=== PATIENT | female | born 1960 | race Caucasian/White ===

== ENCOUNTER → 2017-03-01 | Outpatient (CLI) | payer OTHER ==
[~2017-03-01] MED LIST: ALBUAER3 INH; ALPR0.25 PO; ASPI325T PO; CALC950T PO; CITA20TA4 PO; DIALCAP PO; DOCU100C PO; FURO1TAB62 PO; GABA300C5 PO; GLUCTES27; IBUP400T20 PO; INSU-174; LEVEMIR SQ; LEVO100T5 PO; MAGN1CAP2 PO; METF500T PO; MONT10TA4 PO; MULT-65; MULT1TAB21; NITR0.4S SL; OMEP40CA2 PO; POTA10CA PO; ROBA500T PO; ROSU10 PO; SYNT88TA PO; WELLTAB39 PO; XARE20TA PO; ZANA4CAP PO; [UNRECOGNIZED DRUG - CODE]; [UNRECOGNIZED DRUG - CODE] SL
[2017-03-01 10:29] LABS: HEMATOCRIT 36.5 % (35.0-46.0); MEAN CELL VOLUME 90.4 FL (80.0-100.0); MEAN CORPUSCULAR HEMOGLOBIN 29.8 PG (27.0-34.0); PLATELET COUNT 214 TH/MM3 (150-450); RED BLOOD COUNT 4.04 MIL/MM3 (4.00-5.30); RED CELL DISTRIBUTION WIDTH 12.8 % (11.6-17.2); REVIEW FLAG FINAL; WHITE BLOOD COUNT 6.8 TH/MM3 (4.0-11.0)
[2017-03-01 11:03] LABS: ALKALINE PHOSPHATASE 112 U/L (45-117); ALT (GPT) 31 U/L (10-53); ANION GAP 7 MEQ/L (5-15); AST (GOT) 16 U/L (15-37); BLOOD UREA NITROGEN 11 MG/DL (7-18); CHLORIDE 100 MEQ/L (98-107); GLOMERULAR FILTRATION RATE 69 ML/MIN (>89); GLUCOSE,FASTING 250 MG/DL (74-99); HDL CHOLESTEROL 46.6 MG/DL (40.0-60.0); LDL CHOLESTEROL 70 MG/DL (0-99); POTASSIUM 3.9 MEQ/L (3.5-5.1); SODIUM (NA) 138 MEQ/L (136-145); TOTAL BILIRUBIN ADULT 0.3 MG/DL (0.2-1.0)
[2017-03-01 14:35] LABS: HEMOGLOBIN A1a 1.2 %; HEMOGLOBIN A1b 2.5 %; HEMOGLOBIN Ao 78.5 %; HEMOGLOBIN LA1C 3.1 %; HEMOGLOBIN P3 4.8 %
== END ==
LOC: CLAB 09:28
PROVIDERS: ATTEND Nurse Practitioner Family
DX: E11.9 Type 2 diabetes mellitus without complications (principal)
CPT/HCPCS: 36415; 80053; 80061; 83036; 84443; 85027

== ENCOUNTER 2017-06-24 05:35 | Observation (INO) | payer OTHER ==
[~2017-06-24 05:35] MED LIST changes: -CALC950T PO; -INSU-174; -SYNT88TA PO
[2017-06-24 05:37] VITALS: BP 150/72; PULSE 80; RESP 16; TEMP 98.1; O2SAT 96
--- NOTE | 2017-06-24 06:35 | PD ---
HPI Chief Complaint: Nosebleed Time Seen by Provider: 05:53 Travel History International Travel<30 days: No Contact w/Intl Traveler<30days: No Traveled to known affect area: No History of Present Illness HPI Patient is a 57-year-old female presents emergency department for evaluation of back pain. She states the pain is just between her shoulder blades and it feels just like the last time she had a heart attack. The patient became alarmed when she awoke this morning and there was some wetness on her face and when she woke up there was some blood on her face from her right [place]. Patient states she is on Xarelto for stents in her heart. She states she does have a history of age fibrillation status post ablation. She states she had a catheterization in 2008 at [facility] at her insistence because she thought she was having a heart attack in the fine 99% blockage which they stated that time. She states she has not seen a alignment technician since. She denies any shortness of breath abdominal pain nausea or vomiting. States symptoms started last night after dinner. PFSH Past Medical History Hx Anticoagulant Therapy: Yes Arthritis: Yes (OA) Atrial Fibrillation: Yes (ABLATION) Heart Rhythm Problems: Yes Cancer: No Cardiac Catheterization: Yes Cardiovascular Problems: Yes High Cholesterol: Yes Congestive Heart Failure: No Coronary Artery Disease: Yes Diabetes: Yes Patient Takes Glucophage: Yes Diminished Hearing: No Endocrine: Yes (HYPOTHYROIDISM) Genitourinary: No Musculoskeletal: Yes (OSTEOPOROSIS, BACK STENOSIS) Neurologic: No Psychiatric: No Reproductive: No Respiratory: No Thyroid Disease: Yes (HYPO) Past Surgical History Abdominal Surgery: Yes (HYSTERECTOMY) Cardiac Surgery: Yes (CARDIAC CATH, ABLATION) Coronary Artery Bypass Graft: No Coronary Stent: Yes Gynecologic Surgery: Yes (C SECTION X2) Hysterectomy: Yes Pacemaker: No Family History Family Myocardial Infarction: Yes Social History Alcohol Use: Yes (wine occ) Tobacco Use: No (hx) Substance Use: No Allergies-Medications (Allergen,Severity, Reaction): Coded Allergies: Coconut (Verified Allergy, Severe, Anaphylaxis, 06/24/17) Codeine (Verified Allergy, Intermediate, Nausea/Vomiting, 06/24/17) Nonsteroidal Anti-Inflammatory Agts (Verified Adverse Reaction, Severe, BLEEDING, 06/24/17) Reported Meds & Prescriptions Reported Meds & Active Scripts Active Bd Insulin Syringe Safety 29G X 1/2" 1 ml (Insulin Syringe/Needle U-100) 1 Mis Mis Box BID Levemir Inj (Insulin Detemir) 1,000 unit/ 10 ML Vial 15 Units SQ BID Do not mix with any other Insulin. Merary Contour Next Blood Test Strips (Blood Glucose Test Strips) 1 Merlene Merlene 1 Strip .ROUTE BID Lasix (Furosemide) 20 Mg Tab 20 Mg PO DAILY Nitrostat SL (Nitroglycerin) 0.4 Mg Subl 0.4 Mg SL DIRECTED PRN 1 tablet under the tongue as needed for chest pain. Repeat every 5 minutes for a total of 3 DOSES or call 911 if NO relief. Metformin (Metformin HCl) 500 Mg Tab 500 Mg PO BIDPC PRN With meals. taking 1 tab in the am and 1,000 at night Xarelto (Rivaroxaban) 20 Mg Tab 20 Mg PO DAILY Crestor (Rosuvastatin Calcium) 10 Mg Tab 10 Mg PO HS Zanaflex (Tizanidine HCl) 4 Mg Cap 4 Mg PO HS Robaxin (Methocarbamol) 500 Mg Tab 500 Mg PO TID Montelukast (Montelukast Sodium) 10 Mg Tab 10 Mg PO HS Potassium Chloride ER (Potassium Chloride) 10 Meq Cap 10 Meq PO BID Ibuprofen 400 Mg Tab 400 Mg PO BID Omeprazole 40 Mg Cap 40 Mg PO BIDAC Proair Hfa 8.5 GM Inh (Albuterol Sulfate) 90 Mcg/Act Aer 2 Puff INH QID PRN 108 mcg/actuation Reported Vitamin D3 (Cholecalciferol) 5,000 Unit Cap 5,000 Units PO DAILY Levothyroxine (Levothyroxine Sodium) 88 Mcg Tab 88 Mcg PO DAILY Hair/Skin/Nails/Biotin (Multiple Vitamins W/ Minerals) 1 Tab Tab 2 Chew DAILY Multi-Vitamin Daily (Multiple Vitamin) 1 Tab Tab 1 Chew .ROUTE B-12 Dots (Cyanocobalamin) 500 Mcg Tab 1,000 Mcg SL DAILY Alprazolam 0.25 Mg Tab 0.25 Mg PO DAILY PRN Aspirin 325 Mg Tab 325 Mg PO DAILY Docusate Sodium 100 Mg Cap 100 Mg PO DAILY Citalopram (Citalopram Hydrobromide) 20 Mg Tab 20 Mg PO DAILY Wellbutrin Xl 24 HR (Bupropion HCl) 300 Mg Tab 300 Mg PO DAILY Gabapentin 300 Mg Cap 300 Mg PO HS Dialyvite Vitamin D 5000 (Cholecalciferol) 5,000 Unit Cap 5,000 Units PO DAILY Review of Systems Except as stated in HPI: all other systems reviewed are Neg Physical Exam Narrative GENERAL: Well-developed well-nourished no obvious distress. SKIN: Focused skin assessment warm/dry. HEAD: Atraumatic. Normocephalic. EYES: Pupils equal and round. No scleral icterus. No injection or drainage. ENT: No nasal bleeding or discharge. Mucous membranes pink and moist. NECK: Trachea midline. No JVD. CARDIOVASCULAR: Regular rate and rhythm. No murmur appreciated. 2+ bilateral equal pulses in all 4 extremities. No edema. No murmurs gallops or rubs. RESPIRATORY: No accessory muscle use. Clear to auscultation. Breath sounds equal bilaterally. GASTROINTESTINAL: Abdomen soft, non-tender, nondistended. Hepatic and splenic margins not palpable. MUSCULOSKELETAL: No obvious deformities. No clubbing. No cyanosis. No edema. There is some minimal tenderness between the shoulder blades not in the midline. NEUROLOGICAL: Awake and alert. No obvious cranial nerve deficits. Motor grossly within normal limits. Normal speech. PSYCHIATRIC: Appropriate mood and affect; insight and judgment normal. Data Data Last Documented VS Vital Signs Date Time Temp Pulse Resp B/P Pulse Ox O2 Delivery O2 Flow Rate FiO2 06/24/17 05:37 98.1 80 16 150/72 96 Room Air Orders Electrocardiogram (06/24/17 06:31) Ckmb (Isoenzyme) Profile (06/24/17 06:31) Complete Blood Count With Diff (06/24/17 06:31) Comprehensive Metabolic Panel (06/24/17 06:31) Magnesium (Mg) (06/24/17 06:31) Prothrombin Time / Inr (Pt) (06/24/17 06:31) Act Partial Throm Time (Ptt) (06/24/17 06:31) Troponin I (06/24/17 06:31) Chest, Single Ap (06/24/17 06:31) Ecg Monitoring (06/24/17 06:31) Iv Access Insert/Monitor (06/24/17 06:31) Oximetry (06/24/17 06:31) Oxygen Administration (06/24/17 06:31) Aspirin Chew (Aspirin Chew) (06/24/17 06:45) Sodium Chloride 0.9% Flush (Ns Flush) (06/24/17 06:45) Labs Laboratory Tests Test 06/24/17 06:41 White Blood Count 7.3 TH/MM3 Red Blood Count 3.89 MIL/MM3 Hemoglobin 11.6 GM/DL Hematocrit 35.1 % Mean Corpuscular Volume 90.3 FL Mean Corpuscular Hemoglobin 29.9 PG Mean Corpuscular Hemoglobin 33.1 % Concent Red Cell Distribution Width 13.1 % Platelet Count 244 TH/MM3 Mean Platelet Volume 7.4 FL Neutrophils (%) (Auto) 46.0 % Lymphocytes (%) (Auto) 45.7 % Monocytes (%) (Auto) 6.2 % Eosinophils (%) (Auto) 1.8 % Basophils (%) (Auto) 0.3 % Neutrophils # (Auto) 3.4 TH/MM3 Lymphocytes # (Auto) 3.3 TH/MM3 Monocytes # (Auto) 0.5 TH/MM3 Eosinophils # (Auto) 0.1 TH/MM3 Basophils # (Auto) 0.0 TH/MM3 CBC Comment DIFF FINAL Differential Comment MDM Medical Decision Making Medical Screen Exam Complete: Yes Emergency Medical Condition: Yes Interpretation(s) EKG shows normal sinus rhythm normal axis normal R-wave progression. No concerning ST segment changes. Intervals within normal limits. This normal EKG. Differential Diagnosis ACS, AMI, shoulder pain, muscular skeletal pain. Narrative Course Patient roomed in emergency department, basic cardiac labs have been ordered for her. EKG reviewed and is nonischemic. Patient will be discussed with the oncoming provider Dr. Mcmahon at 07 100 shift change to follow-up labs and disposition the patient appropriately. Win Zarate MD Jun 24, 2017 06:35
[2017-06-24] MEDS ORDERED: LEVO88TA2 PO (06:40)
[2017-06-24] MEDS ORDERED: CHOL5000 PO (06:40)
[2017-06-24] MEDS ORDERED: ASPIRIN 81 MG CHEW TAB PO ONE (06:45)
[2017-06-24] MEDS ORDERED: SODIUM CHLORIDE 0.9% FLUSH 10 ML FLUSH IVF PRN (06:45)
--- NOTE | 2017-06-24 06:46 | RADRPT ---
EXAM DATE/TIME: 06/24/2017 06:26 [facility] COMPARISON: CHEST SINGLE AP, December 26, 2015, 18:48. INDICATIONS : Chest pain. MEDICAL HISTORY : Diabetes mellitus type II. SURGICAL HISTORY : Kyphoplasty. ENCOUNTER: Initial ACUITY: 1 day PAIN SCORE: 6/10 LOCATION: Bilateral chest FINDINGS: A single view of the chest demonstrates the lungs to be symmetrically aerated without evidence of mas s, infiltrate or effusion. The cardiomediastinal contours are unremarkable. Osseous structures are intact. CONCLUSION: The lungs are clear. Hugh Vela MD on June 24, 2017 at 6:45 Board Certified Radiologist. This report was verified electronically.
[2017-06-24 06:55] LABS: AUTOMATED NEUTROPHIL # 3.4 TH/MM3 (1.8-7.7); BASOPHIL % 0.3 % (0.0-2.0); EOSINOPHIL # 0.1 TH/MM3 (0-0.4); EOSINOPHIL % 1.8 % (0.0-4.0); HEMATOCRIT 35.1 % (35.0-46.0); HEMO FLAGS DIFF FINAL; LYMPH % 45.7 % (9.0-44.0); LYMPHOCYTE # 3.3 TH/MM3 (1.0-4.8); MEAN CELL VOLUME 90.3 FL (80.0-100.0); MEAN CORPUSCULAR HEMOGLOBIN 29.9 PG (27.0-34.0); MEAN CORPUSCULAR HGB CONC 33.1 % (32.0-36.0); MONO % 6.2 % (0.0-8.0); PLATELET COUNT 244 TH/MM3 (150-450); RED BLOOD COUNT 3.89 MIL/MM3 (4.00-5.30); RED CELL DISTRIBUTION WIDTH 13.1 % (11.6-17.2); WHITE BLOOD COUNT 7.3 TH/MM3 (4.0-11.0)
[2017-06-24 06:59] VITALS: BP 137/70; PULSE 69; RESP 17; O2SAT 98
[2017-06-24 07:06] LABS: APTT (PATIENT) 28.9 SEC (24.3-30.1); INTERNATIONAL NORMALIZED RATIO 1.2 RATIO; PROTHROMBIN TIME - PATIENT 12.8 SEC (9.8-11.6)
[2017-06-24] MEDS ORDERED: ACETAMINOPHEN 325 MG TAB PO ONE (07:15)
[2017-06-24 07:24] LABS: ALT (GPT) 24 U/L (10-53); ANION GAP 11 MEQ/L (5-15); BICARBONATE 25.2 MEQ/L (21.0-32.0); BLOOD UREA NITROGEN 11 MG/DL (7-18); CHLORIDE 104 MEQ/L (98-107); GLOMERULAR FILTRATION RATE 82 ML/MIN (>89); MAGNESIUM 1.8 MG/DL (1.5-2.5); POTASSIUM 3.6 MEQ/L (3.5-5.1); SODIUM (NA) 140 MEQ/L (136-145)
[2017-06-24 07:29] LABS: ALKALINE PHOSPHATASE 100 U/L (45-117); AST (GOT) 19 U/L (15-37); TOTAL BILIRUBIN ADULT 0.2 MG/DL (0.2-1.0)
[2017-06-24 07:31] LABS: CREATINE KINASE 88 U/L (26-192)
--- NOTE | 2017-06-24 07:36 | PD ---
Physical Exam Date Seen by Provider: Jun 24, 2017 Time Seen by Provider: 07:34 Narrative 57-year-old female came to the emergency room with history of back pain saying that it feels exactly like her heart attack last time. Patient does have history of coronary artery disease and has a stent that was put in 2007. She was seen by the previous ER physician. Please refer to his notes regarding details specifics regarding her history and physical. The sign out to me was to follow-up on the blood test result and as per the previous physician patient had enough past history and concerns regarding coronary artery disease and hence should be admitted to the chest pain center to be ruled out. Blood test results are currently back and troponin is within acceptable limits. As per the previous physician's decision patient will be admitted for observation to the chest pain center to be evaluated by the computer forensics examiner. Patient was complaining of headache from the nitroglycerin. I've ordered some Tylenol for her. Data Data Last Documented VS Vital Signs Date Time Temp Pulse Resp B/P Pulse Ox O2 Delivery O2 Flow Rate FiO2 06/24/17 06:59 69 17 137/70 98 Room Air 06/24/17 05:37 98.1 Orders Electrocardiogram (06/24/17 06:31) Ckmb (Isoenzyme) Profile (06/24/17 06:31) Complete Blood Count With Diff (06/24/17 06:31) Comprehensive Metabolic Panel (06/24/17 06:31) Magnesium (Mg) (06/24/17 06:31) Prothrombin Time / Inr (Pt) (06/24/17 06:31) Act Partial Throm Time (Ptt) (06/24/17 06:31) Troponin I (06/24/17 06:31) Chest, Single Ap (06/24/17 06:31) Ecg Monitoring (06/24/17 06:31) Iv Access Insert/Monitor (06/24/17 06:31) Oximetry (06/24/17 06:31) Oxygen Administration (06/24/17 06:31) Aspirin Chew (Aspirin Chew) (06/24/17 06:45) Sodium Chloride 0.9% Flush (Ns Flush) (06/24/17 06:45) Acetaminophen (Tylenol) (06/24/17 07:15) Admit Order (Ed Use Only) (06/24/17 07:40) Labs Laboratory Tests Test 06/24/17 06/24/17 06:40 06:41 D-Dimer Quantitative (PE/DVT) 0.35 MG/L FEU White Blood Count 7.3 TH/MM3 Red Blood Count 3.89 MIL/MM3 Hemoglobin 11.6 GM/DL Hematocrit 35.1 % Mean Corpuscular Volume 90.3 FL Mean Corpuscular Hemoglobin 29.9 PG Mean Corpuscular Hemoglobin 33.1 % Concent Red Cell Distribution Width 13.1 % Platelet Count 244 TH/MM3 Mean Platelet Volume 7.4 FL Neutrophils (%) (Auto) 46.0 % Lymphocytes (%) (Auto) 45.7 % Monocytes (%) (Auto) 6.2 % Eosinophils (%) (Auto) 1.8 % Basophils (%) (Auto) 0.3 % Neutrophils # (Auto) 3.4 TH/MM3 Lymphocytes # (Auto) 3.3 TH/MM3 Monocytes # (Auto) 0.5 TH/MM3 Eosinophils # (Auto) 0.1 TH/MM3 Basophils # (Auto) 0.0 TH/MM3 CBC Comment DIFF FINAL Differential Comment Prothrombin Time 12.8 SEC Prothromb Time International 1.2 RATIO Ratio Activated Partial 28.9 SEC Thromboplast Time Sodium Level 140 MEQ/L Potassium Level 3.6 MEQ/L Chloride Level 104 MEQ/L Carbon Dioxide Level 25.2 MEQ/L Anion Gap 11 MEQ/L Blood Urea Nitrogen 11 MG/DL Creatinine 0.73 MG/DL Estimat Glomerular Filtration 82 ML/MIN Rate Random Glucose 122 MG/DL Calcium Level 8.4 MG/DL Magnesium Level 1.8 MG/DL Total Bilirubin 0.2 MG/DL Aspartate Amino Transf 19 U/L (AST/SGOT) Alanine Aminotransferase 24 U/L (ALT/SGPT) Alkaline Phosphatase 100 U/L Total Creatine Kinase 88 U/L Troponin I LESS THAN 0.02 NG/ML Total Protein 7.1 GM/DL Albumin 3.4 GM/DL [facility] Supervised Visit with [facility]: No Diagnosis Primary Impression: Chest pain Qualified Code: R07.9 - Chest pain, unspecified type Additional Impression: Back pain Qualified Code: M54.6 - Acute midline thoracic back pain Admitting Information Admitting Physician Requests: Observation Scripts Cyclobenzaprine (Flexeril)5 Mg Tab5 Mg PO TID #30 TAB Ref 0 Prov:Juliet Robbins 06/24/17 Brannon Mcmahon MD Jun 24, 2017 07:36
[2017-06-24] MEDS ORDERED: NITROGLYCERIN 0.4 MG SL 25 TABS/BTL SL PRN (08:30)
[2017-06-24] MEDS ORDERED: ONDANSETRON HCL 4 MG/2 ML VIAL IV PRN (08:30)
[2017-06-24 09:00] VITALS: BP 134/62; PULSE 65; RESP 18; TEMP 98.7; O2SAT 97; O2SAT 98
[2017-06-24] MEDS ORDERED: SODIUM CHLORIDE 0.9% FLUSH 10 ML FLUSH IV FLUSH SCH (09:00)
[2017-06-24 09:35] VITALS: PULSE 65
--- NOTE | 2017-06-24 09:39 | HHI.HP ---
HPI Primary Care Physician Kym Javier MD Chief Complaint Back pain History of Present Illness 57-year-old female with history of CAD, diabetes, hypertension, and hyperlipidemia presents to emergency room for further evaluation of back pain. Onset yesterday afternoon at 2 PM. Location mid back just below her shoulder blades. Radiation to substernal chest. Characterized has aching, sharp pain. No associated symptoms of nausea, vomiting, diaphoresis. Endorses shallow breathing due to severe pain, states it hurts to take a deep breath. No particular position or movement makes pain better or worse. No known precipitating or relieving factors. Reports similar pain in the past in 2011 at which one cardiac stent was placed. Review of Systems General: No fatigue,weakness, fever, chills, or recent illness. Has been in her general state of health. HEENT: No MARIN, no vision changes. Reports nosebleed this a.m. for approximately 45 minutes. CV: As stated above. No palpitations. History paroxysmal A. fib. RESP: No SOB, cough, wheeze, or recent URI. GI: No nausea, vomiting, bowel changes, diarrhea, constipation, pain, distention , melena, or blood in the stool. Denies incontinence of bowel. No change in appetite, no unintentional weight gain or weight loss. : No dysuria, urgency, frequency, frequent UTIs, or history of kidney stones. Denies urinary incontinence. EXT: No lower leg edema, no paraesthesias, no saddle anesthesia MS: As stated above. Continues to have discomfort and back rated 9/10. No change in ROM or progressive extremity weakness. NEURO: No difficulty with balance, LOC, motor/sensory deficits PSYCH: No anxiety or depression SKIN: No rashes, no concerning lesions Past Family Social History Allergies: Coded Allergies: Coconut (Verified Allergy, Severe, Anaphylaxis, 06/24/17) Codeine (Verified Allergy, Intermediate, Nausea/Vomiting, 06/24/17) Nonsteroidal Anti-Inflammatory Agts (Verified Adverse Reaction, Severe, BLEEDING, 06/24/17) Past Medical History CAD, times one cardiac stent, diabetes, hypertension, hyperlipidemia, paroxysmal afib with ablation 2013, osteoarthritis Past Surgical History Hysterectomy, 2, bilateral rotator cuff repair, cholecystectomy Reported Medications Active Bd Insulin Syringe Safety 29G X 1/2" 1 ml (Insulin Syringe/Needle U-100) 1 Mis Mis Box BID Levemir Inj (Insulin Detemir) 1,000 unit/ 10 ML Vial 15 Units SQ BID Do not mix with any other Insulin. Merary Contour Next Blood Test Strips (Blood Glucose Test Strips) 1 Merlene Merlene 1 Strip .ROUTE BID Lasix (Furosemide) 20 Mg Tab 20 Mg PO DAILY Nitrostat SL (Nitroglycerin) 0.4 Mg Subl 0.4 Mg SL DIRECTED PRN 1 tablet under the tongue as needed for chest pain. Repeat every 5 minutes for a total of 3 DOSES or call 911 if NO relief. Metformin (Metformin HCl) 500 Mg Tab 500 Mg PO BIDPC PRN With meals. taking 1 tab in the am and 1,000 at night Xarelto (Rivaroxaban) 20 Mg Tab 20 Mg PO DAILY Crestor (Rosuvastatin Calcium) 10 Mg Tab 10 Mg PO HS Zanaflex (Tizanidine HCl) 4 Mg Cap 4 Mg PO HS Robaxin (Methocarbamol) 500 Mg Tab 500 Mg PO TID Montelukast (Montelukast Sodium) 10 Mg Tab 10 Mg PO HS Potassium Chloride ER (Potassium Chloride) 10 Meq Cap 10 Meq PO BID Ibuprofen 400 Mg Tab 400 Mg PO BID Omeprazole 40 Mg Cap 40 Mg PO BIDAC Proair Hfa 8.5 GM Inh (Albuterol Sulfate) 90 Mcg/Act Aer 2 Puff INH QID PRN 108 mcg/actuation Reported Vitamin D3 (Cholecalciferol) 5,000 Unit Cap 5,000 Units PO DAILY Levothyroxine (Levothyroxine Sodium) 88 Mcg Tab 88 Mcg PO DAILY Hair/Skin/Nails/Biotin (Multiple Vitamins W/ Minerals) 1 Tab Tab 2 Chew DAILY Multi-Vitamin Daily (Multiple Vitamin) 1 Tab Tab 1 Chew .ROUTE B-12 Dots (Cyanocobalamin) 500 Mcg Tab 1,000 Mcg SL DAILY Alprazolam 0.25 Mg Tab 0.25 Mg PO DAILY PRN Aspirin 325 Mg Tab 325 Mg PO DAILY Docusate Sodium 100 Mg Cap 100 Mg PO DAILY Citalopram (Citalopram Hydrobromide) 20 Mg Tab 20 Mg PO DAILY Wellbutrin Xl 24 HR (Bupropion HCl) 300 Mg Tab 300 Mg PO DAILY Gabapentin 300 Mg Cap 300 Mg PO HS Dialyvite Vitamin D 5000 (Cholecalciferol) 5,000 Unit Cap 5,000 Units PO DAILY Active Ordered Medications Current Medications Medications (Trade) Dose Ordered Sig/Kade Route Start Time Stop Time Status Last Admin (NS Flush) 2 ml UNSCH PRN IVF 06/24/17 06:45 06/24/17 06:48 (NS Flush) 2 ml BID IV FLUSH 06/24/17 09:00 (Tylenol) 500 mg Q4H PRN PO 06/24/17 11:00 (Zofran Inj) 4 mg Q6H PRN IV 06/24/17 08:30 (Nitrostat Sl) 0.4 mg Q5M PRN SL 06/24/17 08:30 Family History Mother heart attack at age 46. Dad age 68 from colon cancer. Social History Known diabetes, hypertension, personal coronary artery disease, and hyperlipidemia. Quit smoking 11 years ago. Endorses one glass a wine weekly. Denies any illegal drug use. Past cardiac testing 2011-cardiac catheterization ([facility]-Dr. Gideon Cole)-one cardiac stent placed. She cannot remember which artery and does not have a cardiac card with her. Physical Exam Vital Signs Vital Signs Date Time Temp Pulse Resp B/P Pulse Ox O2 Delivery O2 Flow Rate FiO2 06/24/17 09:00 98.7 65 18 134/62 97 06/24/17 06:59 69 17 137/70 98 Room Air 06/24/17 05:37 98.1 80 16 150/72 96 Room Air Physical Exam GENERAL: Alert WN, WD, NAD, female who appears older than stated age HEAD: NC, AT CV: RRR, without murmur, rub, gallop, no JVD, S1-S2 no S3-S4. Substernal chest pain tender with palpation RESP: Clear lungs throughout bilateral, no crackles, wheeze, rhonchi, symmetrical chest rise, nonlabored, able to speak in full sentences ABD: Soft, NT, ND, no masses, positive bowel tones BACK: No CVAT, no scoliosis, tenderness to midline, right of spine laterally with palpation. EXT: Pulses +24, no dependent edema MS: Normal tone 4 extremities, nontender, no obvious deformities, full range of motion NEURO: CN II through CN XII grossly intact, motor strength 5/5, PSYCH: A+O 3, pleasant affect, appropriate speech, appropriate mood and affect , insight and judgment SKIN: Normal turgor, normal texture, no rashes Laboratory Laboratory Tests Test 06/24/17 06:41 White Blood Count 7.3 Red Blood Count 3.89 Hemoglobin 11.6 Hematocrit 35.1 Mean Corpuscular Volume 90.3 Mean Corpuscular Hemoglobin 29.9 Mean Corpuscular Hemoglobin 33.1 Concent Red Cell Distribution Width 13.1 Platelet Count 244 Mean Platelet Volume 7.4 Neutrophils (%) (Auto) 46.0 Lymphocytes (%) (Auto) 45.7 Monocytes (%) (Auto) 6.2 Eosinophils (%) (Auto) 1.8 Basophils (%) (Auto) 0.3 Neutrophils # (Auto) 3.4 Lymphocytes # (Auto) 3.3 Monocytes # (Auto) 0.5 Eosinophils # (Auto) 0.1 Basophils # (Auto) 0.0 CBC Comment DIFF FINAL Differential Comment Prothrombin Time 12.8 Prothromb Time International 1.2 Ratio Activated Partial 28.9 Thromboplast Time Sodium Level 140 Potassium Level 3.6 Chloride Level 104 Carbon Dioxide Level 25.2 Anion Gap 11 Blood Urea Nitrogen 11 Creatinine 0.73 Estimat Glomerular Filtration 82 Rate Random Glucose 122 Calcium Level 8.4 Magnesium Level 1.8 Total Bilirubin 0.2 Aspartate Amino Transf 19 (AST/SGOT) Alanine Aminotransferase 24 (ALT/SGPT) Alkaline Phosphatase 100 Total Creatine Kinase 88 Troponin I LESS THAN 0.02 Total Protein 7.1 Albumin 3.4 Result Diagram: 06/24/1741 06/24/1741 Imaging Last Impressions Chest X-Ray 06/24/17 0631 Signed Impressions: Service Date/Time: Saturday, June 24, 2017 06:26 - CONCLUSION: The lungs are clear. Hugh Vela MD Course EKG Assessment and Plan Assessment and Plan Atypical chest painadmitted to chest pain center. Will rule out with serial EKGs and cardiac enzymes. Monitor on telemetry. Seen and evaluated by Dr. Gideon Cole. Back and chest pain easily reproducible with palpation, movement, and is worse with breathing. No further cardiac testing required. Reassurance provided to patient discomfort not cardiac in nature. Thoracic radiculopathyDilaudid 2 milligrams every 4 hours when necessary, spinal lumber x-ray Diabetes-SSI moderate dose coverage Hyperlipidemia-continue Crestor Depression-continue citalopram, Wellbutrin Hypothyroidism-continue levothyroxine All other routine medications will be reordered accordingly Juliet Robbins Jun 24, 2017 09:39
[2017-06-24 10:46] LABS: CREATINE KINASE 119 U/L (26-192)
[2017-06-24] MEDS: HYDROmorphone HCL 2 MG TAB PO PRN ×2 (10:47→14:34)
[2017-06-24 10:58] LABS: CKMB 1.5 NG/ML (0.5-3.6)
[2017-06-24] MEDS ORDERED: ACETAMINOPHEN 500 MG CPLT PO PRN (11:00)
[2017-06-24 13:20] VITALS: BP 121/81; PULSE 104; RESP 16; TEMP 98.2; O2SAT 96
[2017-06-24 13:53] LABS: CREATINE KINASE 84 U/L (26-192)
[2017-06-24] MEDS ORDERED: FUROSEMIDE 20 MG TAB PO SCH (14:00)
[2017-06-24] MEDS ORDERED: INSULIN DETEMIR 100 UNITS/ML VIAL SQ SCH (14:00)
[2017-06-24] MEDS ORDERED: buPROPion HCL 150 MG SUSTAINED RELEASE TAB PO SCH (14:00)
[2017-06-24] MEDS ORDERED: POTASSIUM CHLORIDE 10 MEQ CAP PO SCH (14:00)
[2017-06-24] MEDS ORDERED: DEXTROSE 50% IN WATER 50 ML VIAL(D50) IV PRN (14:15)
[2017-06-24] MEDS ORDERED: GLUCAGON 1 MG/ML VIAL OTHER PRN (14:15)
[2017-06-24] MEDS: CITALOPRAM HYDROBROMIDE 20 MG TAB PO SCH ×2 (14:33→15:43)
--- NOTE | 2017-06-24 15:07 | EKG ---
Date Performed: 06/24/2017 Time Performed: 09:43:07 PTAGE: 57 years EKG: Sinus rhythm POSSIBLE RIGHT VENTRICULAR CONDUCTION DELAY BORDERLINE ECG INTERPRETATION BASED ON A DEFAULT AGE OF 40 YEARS NO PREVIOUS TRACING DOCTOR: Gideon Cole Interpretating Date/Time 06/24/2017 15:06:38
--- NOTE | 2017-06-24 15:09 | EKG ---
Date Performed: 06/24/2017 Time Performed: 06:06:00 PTAGE: 57 years EKG: Sinus rhythm NORMAL ECG NO PREVIOUS TRACING DOCTOR: Gideon Cole Interpretating Date/Time 06/24/2017 15:07:39
--- NOTE | 2017-06-24 15:13 | EKG ---
Date Performed: 06/24/2017 Time Performed: 12:55:50 PTAGE: 57 years EKG: Sinus rhythm NORMAL ECG PREVIOUS TRACING : 06/24/2017 09.43 Since previous tracing, no significant change noted DOCTOR: Gideon Cole Interpretating Date/Time 06/24/2017 15:12:32
--- NOTE | 2017-06-24 15:40 | RADRPT ---
EXAM DATE/TIME: 06/24/2017 14:57 [facility] COMPARISON: No previous studies available for comparison. INDICATIONS : Mid back pain with no known injury. MEDICAL HISTORY : Osteoporosis. SURGICAL HISTORY : T9 T10 kyphoplasty. ENCOUNTER: Initial ACUITY: 3 days PAIN SCORE: 10/10 LOCATION: middle back. FINDINGS: 3 views of the thoracic spine demonstrate no fracture or dislocation. Mineralization is mildly decrea sed. Cement material is present within T9 and T10 vertebral bodies related to prior vertebroplasty. T here is extrusion of cement anterior to the T10 vertebral body. Visualized surrounding structures dem onstrate no acute finding. Cholecystectomy clips are present. CONCLUSION: No acute abnormality is identified. Bones are undermineralized and there has been prior T9 and T10 le tico vertebroplasty. Kishore Jacobs MD on June 24, 2017 at 15:37 Board Certified Radiologist. This report was verified electronically.
[2017-06-24] MEDS ORDERED: INSULIN ASPART SUPPLEMENTAL SCALE SQ SCH (16:00)
[2017-06-24] MEDS ORDERED: PANTOPRAZOLE SOD 40 MG DELAYED RELEASE TAB PO SCH (16:00)
[2017-06-24] MEDS ORDERED: NON-FORMULARY DRUG (Omeprazole 40 MG) PO SCH (16:00)
--- NOTE | 2017-06-24 16:11 | HHI.DCPOC ---
Discharge Care Plan Diagnosis: (1) Atypical chest pain (2) Radicular pain of thoracic region (3) History of coronary artery disease (4) Type 2 diabetes mellitus Goals to Promote Your Health * To prevent worsening of your condition and complications * To maintain your health at the optimal level Directions to Meet Your Goals Take your medications as prescribed Follow your dietary instruction Follow activity as directed Keep your appointments as scheduled Take your immunizations and boosters as scheduled If your symptoms worsen call your PCP, if no PCP go to Urgent Care Center or Emergency Room Smoking is Dangerous to Your Health. Avoid second hand smoke Call the 24-hour hour crisis hotline for domestic abuse at Juliet Robbins Jun 24, 2017 16:11
[2017-06-24] MEDS ORDERED: METF1000 PO (16:43)
[2017-06-24] MEDS ORDERED: CYCL5TAB PO (17:01)
[2017-06-24] MEDS ORDERED: GABAPENTIN 300 MG CAP PO SCH (21:00)
[2017-06-25] MEDS ORDERED: LEVOTHYROXINE SODIUM 88 MCG TAB PO SCH (06:00)
[2017-06-25] MEDS ORDERED: RIVAROXABAN 20 MG TAB PO SCH (09:00)
== END 2017-06-24 18:21 | disposition home or self-care (01) ==
LOC: NEPC 05:35 → NEDH 07:41 → NEPGCP 08:44
PROVIDERS: ADMIT Internal Medicine Cardiovascular Disease; ATTEND Internal Medicine Cardiovascular Disease
DX: R07.89 Other chest pain (principal); M54.10 Radiculopathy, site unspecified; M54.6 Pain in thoracic spine; I25.10 Atherosclerotic heart disease of native coronary artery without angina pectoris; R51 Headache; E11.9 Type 2 diabetes mellitus without complications; I48.0 Paroxysmal atrial fibrillation; I10 Essential (primary) hypertension; E78.5 Hyperlipidemia, unspecified; E78.00 Pure hypercholesterolemia, unspecified; E03.9 Hypothyroidism, unspecified; F32.9 Major depressive disorder, single episode, unspecified; M81.0 Age-related osteoporosis without current pathological fracture; Z79.01 Long term (current) use of anticoagulants; Z95.5 Presence of coronary angioplasty implant and graft; Z87.891 Personal history of nicotine dependence
CPT/HCPCS: 71010; 72072; 80053; 82550; 82552; 82948; 83735; 84484; 85025; 85379; 85610; 85730; 93005; 99285; G0378